=== PATIENT | female | born 1985 | race Caucasian/White ===

== ENCOUNTER 2021-12-18 13:51 | Emergency (ER) | payer SELFPAY ==
--- NOTE | 2021-12-18 15:08 | [facility].EDGENADL ---
Discharge Plan Disposition Patient Disposition: Home, Self-Care Condition: Good Prescriptions Prescriptions: New guaifenesin 400 mg tablet 400 mg PO TID PRN (Reason: congestion) Qty: 10 0RF cetirizine 10 mg tablet 10 mg PO DAILY Qty: 30 0RF Referrals Follow up/Referrals: Provider,Referral, [Primary Care Provider] - See instructions Activity Restrictions/Add. Instructions Additional Instructions/Restrictions: You have been evaluated for congestion, diagnosed with a viral upper respiratory infection. Please take daily cetirizine. Take decongestant. Follow-up with a primary care doctor. We have placed a referral. You need to call for an appointment. Return to the emergency department at once for any new or worsening symptoms, chest pain, difficulty breathing or other concerns. Clinical Impressions Clinical Impression: Upper respiratory infection Instructions Patient Instructions: DI for Acute Bronchitis, DI for Viral Upper Respiratory Infection -- Adult Discharge ED Provider: Stacie Horen Adult HPI General Chief complaint: Upper Respiratory Infection Stated complaint: Cough Time Seen by Provider: 12/18/21 15:10 History of Present Illness HPI narrative: 36-year-old female presenting to the emergency department with cough, chest congestion, sinus congestion. Symptoms started 3 to 4 days ago, just for the weekend. She had runny nose, sinus congestion. Symptoms of gotten worse. She now feels like her right ear is clogged. She has a cough that is hacking and nonproductive. No headache, neck pain, shortness of breath. No abdominal pain, nausea, vomiting. Her is also sick. He is being evaluated urgent treatment. She took an [id number] cold medicine today. No other medications prior to arrival. She also has a tooth on the right side that is cracked. Denies other dental problems. Related Data Previous Rx's Medication Instructions Recorded cetirizine 10 mg tablet 10 mg PO DAILY #30 tabs 12/18/21 guaifenesin 400 mg tablet 400 mg PO TID PRN congestion #10 12/18/21 tabs Allergies Allergy/AdvReac Type Severity Reaction Status Date / Time NO KNOWN ALLERGIES Allergy Uncoded 02/10/17 14:00 [facility] Social History Smoking Status: Current every day smoker alcohol intake: current current occupational status: other Travel in the last 8 weeks: None ROS Obtained: Yes All systems reviewed & no additional complaints except as documented Constitutional Constitutional: Denies chills, Denies fever(s), Denies headache(s) and Reports malaise Eyes Eyes: Denies blurry vision and Denies loss of vision ENT Ears, Nose, Mouth, and Throat: Reports otalgia, Denies headache(s), Denies neck pain, Reports sinus pain and Denies sore throat Cardiovascular Cardiovascular: Denies chest pain and Denies dyspnea Respiratory Respiratory: Reports chest congestion, Reports cough and Denies dyspnea Gastrointestinal Gastrointestingal: Denies abdominal pain, nausea or vomiting Musculoskeletal Musculoskeletal: Denies back pain and Denies neck pain Integumentary/Breasts Skin/Breast: Denies redness and Denies rash Neurologic Neurologic: Denies headache(s) and Denies loss of vision Physical Exam General General appearance: alert and in no apparent distress Head Head exam: atraumatic and normocephalic Eye Eye exam: Present normal appearance; Absent conjunctival redness ENT ENT exam: Present normal exam, normal oropharynx, TM's normal bilaterally (No bulging or erythema.) and other (Mild dental decay. No obvious dental caries. Slight tonsillar erythema bilaterally. No exudates.) Neck Neck exam: Present normal inspection and trachea midline; Absent tenderness Respiratory Respiratory exam: Present normal lung sounds bilaterally; Absent respiratory distress or wheezes Cardiovascular Cardiovascular exam: Present regular rate and normal rhythm Abdominal Exam Abdominal exam: Present soft a
[2021-12-18 15:10] VITALS: BP 128/86; PULSE 87; RESP 16; TEMP 36.7; O2SAT 99; BMI 41.5
--- NOTE | 2021-12-18 15:20 | XR_ITS ---
FINAL REPORT CLINICAL HISTORY: cough FINDINGS: SINGLE-VIEW CHEST The heart size is normal. The mediastinum is normal. The lungs are clear. There is no pneumothorax. IMPRESSION: No acute cardiopulmonary process. Reviewed, Interpreted and Dictated by Magdy Black III, MD Transcribed by Fyae Davenport Authenticated and [facility]
--- NOTE | 2021-12-18 15:57 | PC.NURSE ---
covid swab sent to lab at this time
[2021-12-18 16:01] VITALS: BP 115/76; PULSE 86; O2SAT 98
[2021-12-18 16:06] LABS: Coronavirus 19, PCR Not Detected (NotDetected); Influenza A, PCR Not Detected (NotDetected); Influenza B, PCR Not Detected (NotDetected)
[2021-12-18 16:31] VITALS: BP 104/79; PULSE 78; O2SAT 99
[2021-12-18 17:18] VITALS: BP 114/76; PULSE 78; RESP 18; TEMP 36.7; O2SAT 99
== END 2021-12-18 17:18 | disposition home or self-care (01) ==
PROVIDERS: Emergency Provider Emergency Medicine
DX: J06.9 Acute upper respiratory infection, unspecified (principal)
CPT/HCPCS: 71045; 99283; C9803; U0003; U0005